=== PATIENT | male | born 1945 | race Caucasian/White ===

== ENCOUNTER 2016-07-27 12:35 | Inpatient (IN) | payer OTHER ==
[~2016-07-27] VITALS: Ht 195.6 cm; Wt 84.1 kg
[~2016-07-27 12:35] MED LIST: AMBIEN10 MG PO; ASPIRIN81 MG PO; CATAPRES 0.1MG0.1 MG PO; CEFTIN250 MG/5 M PO; CORDARONE 200M200 MG PO; ELIQUIS 5 MG TAB5 MG PO; GLUCOPHAGE1000 MG PO; GLUCOTROL5 MG PO; HYDRALAZINE HCL50 MG PO; HYDROCHLOROTHIA25 MG PO; IMDUR ER TAB 3030 MG PO; ISOSORBIDE MON120 MG PO; JANUVIA100 MG PO; LANOXIN TAB0.125 MG PO; LASIX40 MG PO; LIPITOR TAB 2020 MG PO; LISINOPRIL40 MG PO; LOPRESSOR100 MG PO; MIRALAX17 GM PO; MULTIVITAMINS1 EAC1 PO; NORVASC 5 MG TAB5 MG PO; NOVOLOG MI100 UNITS/ SQ; SERTRALINE HCL50 MG PO; TOPROL XL25 MG PO; VISTARIL25 MG PO; ZITHROMAX250 MG PO
[2016-07-27 13:04] LABS: HEMOGLOBIN 10.7 gm/dl (14.0-17.5); RED BLOOD COUNT 3.56 M/UL (4.20-5.50); WHITE BLOOD COUNT 13.9 K/UL (4.5-11.0)
[2016-07-27] MEDS ORDERED: NORVASC 5 MG TAB5 MG PO (21:21)
[2016-07-28 07:42] LABS: HEMOGLOBIN 9.3 gm/dl (14.0-17.5)
[2016-07-28 07:44] LABS: RED BLOOD COUNT 3.04 M/UL (4.20-5.50); WHITE BLOOD COUNT 8.3 K/UL (4.5-11.0)
[2016-07-29 03:46] LABS: HEMOGLOBIN 8.5 gm/dl (14.0-17.5); RED BLOOD COUNT 2.79 M/UL (4.20-5.50); WHITE BLOOD COUNT 7.5 K/UL (4.5-11.0)
[2016-07-29 11:26] LABS: LDH, BODY FLUID 66 U/L; TOTAL PROTEIN, BODY FLUID 2.9 gm/dL
[2016-07-29 12:01] LABS: BODY FLUID SOURCE PLEURAL
[2016-07-29 13:46] LABS: HEMOGLOBIN 8.6 gm/dl (14.0-17.5); RED BLOOD COUNT 2.87 M/UL (4.20-5.50)
[2016-07-30 03:58] LABS: HEMOGLOBIN 8.4 gm/dl (14.0-17.5); RED BLOOD COUNT 2.82 M/UL (4.20-5.50); WHITE BLOOD COUNT 8.7 K/UL (4.5-11.0)
[2016-07-30] MEDS ORDERED: FERROUS SULFAT325 MG PO (22:15)
[2016-07-30] MEDS ORDERED: BUSPAR 5MG TABLE5 MG PO (22:15)
[2016-07-31 04:16] LABS: HEMOGLOBIN 9.7 gm/dl (14.0-17.5); WHITE BLOOD COUNT 10.5 K/UL (4.5-11.0)
[2016-07-31 04:21] LABS: RED BLOOD COUNT 3.24 M/UL (4.20-5.50)
[2016-08-01 03:37] LABS: HEMOGLOBIN 10.3 gm/dl (14.0-17.5); RED BLOOD COUNT 3.38 M/UL (4.20-5.50); WHITE BLOOD COUNT 11.4 K/UL (4.5-11.0)
[2016-08-02 03:28] LABS: RED BLOOD COUNT 3.31 M/UL (4.20-5.50)
[2016-08-03 07:05] LABS: RED BLOOD COUNT 3.62 M/UL (4.20-5.50); WHITE BLOOD COUNT 11.2 K/UL (4.5-11.0)
[2016-08-04 07:00] LABS: HEMOGLOBIN 11.8 gm/dl (14.0-17.5); RED BLOOD COUNT 3.9 M/UL (4.20-5.50); WHITE BLOOD COUNT 9.3 K/UL (4.5-11.0)
[2016-08-05 06:12] LABS: RED BLOOD COUNT 3.65 M/UL (4.20-5.50); WHITE BLOOD COUNT 9.2 K/UL (4.5-11.0)
[2016-08-06 05:32] LABS: HEMOGLOBIN 10.7 gm/dl (14.0-17.5); RED BLOOD COUNT 3.58 M/UL (4.20-5.50); WHITE BLOOD COUNT 9.4 K/UL (4.5-11.0)
[2016-08-09 05:10] LABS: HEMOGLOBIN 9.9 gm/dl (14.0-17.5); RED BLOOD COUNT 3.3 M/UL (4.20-5.50); WHITE BLOOD COUNT 7.5 K/UL (4.5-11.0)
[2016-08-09] MEDS ORDERED: LEVEMIR100 UNIT/1 SQ (09:46)
[2016-08-09] MEDS ORDERED: VICTOZA 1818 MG/3 ML SC (09:51)
[2016-08-09] MEDS ORDERED: ALDACTONE25 MG PO (09:52)
[2016-08-09] MEDS ORDERED: BUMEX 1MG TABLET1 MG PO (10:06)
== END 2016-08-09 13:04 | disposition home health service (06) | DRG 291 ==
LOC: ER1 12:35 → ZEROF 16:27 → CCU 16:27 → M/S 08-02 21:45
PROVIDERS: Emergency Medicine; Internal Medicine; Internal Medicine Nephrology; ADMIT Family Medicine
PROC: 0W993ZX Drainage of Right Pleural Cavity, Percutaneous Approach, Diagnostic (ICD-10-PCS; principal; 2016-07-29)
DX: I50.23 Acute on chronic systolic (congestive) heart failure (principal); J96.02 Acute respiratory failure with hypercapnia; J96.01 Acute respiratory failure with hypoxia; N17.9 Acute kidney failure, unspecified; I13.0 Hypertensive heart and chronic kidney disease with heart failure and stage 1 through stage 4 chronic kidney disease, or unspecified chronic kidney disease; J90 Pleural effusion, not elsewhere classified; J95.811 Postprocedural pneumothorax; I42.0 Dilated cardiomyopathy; E10.65 Type 1 diabetes mellitus with hyperglycemia; Z79.4 Long term (current) use of insulin; I25.10 Atherosclerotic heart disease of native coronary artery without angina pectoris; I48.0 Paroxysmal atrial fibrillation; I95.9 Hypotension, unspecified; E87.6 Hypokalemia; J44.9 Chronic obstructive pulmonary disease, unspecified; D63.8 Anemia in other chronic diseases classified elsewhere; F41.9 Anxiety disorder, unspecified; T81.82XA Emphysema (subcutaneous) resulting from a procedure, initial encounter; Y83.8 Other surgical procedures as the cause of abnormal reaction of the patient, or of later complication, without mention of misadventure at the time of the procedure; Y92.239 Unspecified place in hospital as the place of occurrence of the external cause; N18.3 Chronic kidney disease, stage 3 (moderate); H92.09 Otalgia, unspecified ear; R68.84 Jaw pain; R53.81 Other malaise; I49.5 Sick sinus syndrome; Z88.8 Allergy status to other drugs, medicaments and biological substances; Z88.2 Allergy status to sulfonamides; Z79.82 Long term (current) use of aspirin; Z79.899 Other long term (current) drug therapy; Z79.01 Long term (current) use of anticoagulants; Z86.73 Personal history of transient ischemic attack (TIA), and cerebral infarction without residual deficits; I25.2 Old myocardial infarction; Z95.810 Presence of automatic (implantable) cardiac defibrillator
CPT/HCPCS: ECHO; 36415; 36600; 51702; 71010; 80048; 80053; 81001; 82272; 82550; 82553; 82570; 82728; 82803; 82945; 82962; 83540; 83550; 83605; 83615; 83735; 83880; 84100; 84132; 84156; 84157; 84484; 84681; 85025; 85027; 85610; 85730; 87040; 87070; 87205; 89051; 93005; 93306; 94640; 94660; 94664; 96372; 96374; 96375; 97110; 97116; 97530; 97535; 99285; J1650; J1756; J1815; J1940; J2260; J2543; J7030; J7040; J7050; Q0162

== ENCOUNTER 2016-08-10 10:28 | Emergency (ER) | payer OTHER ==
[~2016-08-10 10:28] MED LIST changes: +ALDACTONE25 MG PO; +BUMEX 1MG TABLET1 MG PO; +BUSPAR 5MG TABLE5 MG PO; +FERROUS SULFAT325 MG PO; +LEVEMIR100 UNIT/1 SQ; +VICTOZA 1818 MG/3 ML SC
[2016-08-10 12:36] LABS: HEMOGLOBIN 11.1 gm/dl (14.0-17.5)
[2016-08-10 12:42] LABS: RED BLOOD COUNT 3.67 M/UL (4.20-5.50); WHITE BLOOD COUNT 10.6 K/UL (4.5-11.0)
== END 2016-08-10 18:00 | disposition home or self-care (01) ==
LOC: ER1 10:28
PROVIDERS: Physician Assistant
DX: R11.2 Nausea with vomiting, unspecified (principal); I25.10 Atherosclerotic heart disease of native coronary artery without angina pectoris; I48.91 Unspecified atrial fibrillation; Z79.4 Long term (current) use of insulin; J44.9 Chronic obstructive pulmonary disease, unspecified; E11.22 Type 2 diabetes mellitus with diabetic chronic kidney disease; N18.9 Chronic kidney disease, unspecified; Z88.2 Allergy status to sulfonamides; Z88.8 Allergy status to other drugs, medicaments and biological substances
CPT/HCPCS: 36415; 71010; 80053; 81001; 82150; 82550; 82553; 83690; 83874; 83880; 84484; 85025; 93005; 96374; 99284; J2405

== ENCOUNTER 2016-08-13 22:28 | Emergency (ER) | payer OTHER ==
[2016-08-14 01:59] LABS: RED BLOOD COUNT 3.99 M/UL (4.20-5.50); WHITE BLOOD COUNT 12.4 K/UL (4.5-11.0)
== END 2016-08-14 04:18 | disposition home or self-care (01) ==
LOC: ER1 22:28
PROVIDERS: Student in an Organized Health Care Education/Training Program
DX: I13.0 Hypertensive heart and chronic kidney disease with heart failure and stage 1 through stage 4 chronic kidney disease, or unspecified chronic kidney disease (principal); N18.9 Chronic kidney disease, unspecified; K80.20 Calculus of gallbladder without cholecystitis without obstruction; K59.00 Constipation, unspecified; J90 Pleural effusion, not elsewhere classified; E87.5 Hyperkalemia; R31.29 Other microscopic hematuria; I50.9 Heart failure, unspecified; E11.22 Type 2 diabetes mellitus with diabetic chronic kidney disease; Z95.0 Presence of cardiac pacemaker; Z88.2 Allergy status to sulfonamides; Z79.82 Long term (current) use of aspirin; Z79.01 Long term (current) use of anticoagulants
CPT/HCPCS: 36415; 80053; 81001; 83605; 83690; 85025; 96372; 96374; 96375; 99284; J0360; J0500; J2405; J2550

== ENCOUNTER 2016-08-14 08:47 | Emergency (ER) | payer OTHER ==
[2016-08-14 09:39] LABS: HEMOGLOBIN 11.7 gm/dl (14.0-17.5); RED BLOOD COUNT 3.86 M/UL (4.20-5.50)
[2016-08-14 09:43] LABS: WHITE BLOOD COUNT 21.3 K/UL (4.5-11.0)
== END 2016-08-14 13:15 ==
LOC: ER1 08:47
PROVIDERS: Emergency Medicine
DX: J98.2 Interstitial emphysema (principal); J18.9 Pneumonia, unspecified organism; J90 Pleural effusion, not elsewhere classified; I13.0 Hypertensive heart and chronic kidney disease with heart failure and stage 1 through stage 4 chronic kidney disease, or unspecified chronic kidney disease; E11.22 Type 2 diabetes mellitus with diabetic chronic kidney disease; I50.9 Heart failure, unspecified; N18.9 Chronic kidney disease, unspecified; D64.9 Anemia, unspecified; E87.5 Hyperkalemia; D72.829 Elevated white blood cell count, unspecified; I48.91 Unspecified atrial fibrillation; I25.10 Atherosclerotic heart disease of native coronary artery without angina pectoris; Z95.0 Presence of cardiac pacemaker; Z88.2 Allergy status to sulfonamides
CPT/HCPCS: 36415; 71250; 80053; 83605; 84484; 85025; 87040; 93005; 96365; 96375; 99285; J2270; J2543; J2550; J3370; J7050